=== PATIENT | female | born 1995 | race American Indian/Alaskan Native ===

== ENCOUNTER 2020-06-30 00:33 | Emergency (ER) | payer SELFPAY ==
[2020-06-30] MEDS ORDERED: HYDROcodone/ACETAMINOPHEN 5-325 MG TAB PO ONE (01:51)
[2020-06-30] MEDS ORDERED: ONDANSETRON 4 MG ODT TAB PO ONE (01:51)
[2020-06-30] MEDS ORDERED: IBUPROFEN 600 MG TAB PO ONE (01:51)
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
[2020-06-30 03:11] VITALS: BP 128/84
== END 2020-06-30 03:29 | disposition home or self-care (01) ==
LOC: ED 00:33
DX: S53.401A Unspecified sprain of right elbow, initial encounter (principal); S00.83XA Contusion of other part of head, initial encounter; S00.03XA Contusion of scalp, initial encounter; S10.93XA Contusion of unspecified part of neck, initial encounter; M62.838 Other muscle spasm; F17.200 Nicotine dependence, unspecified, uncomplicated; Z91.013 Allergy to seafood; Z98.890 Other specified postprocedural states; Z79.899 Other long term (current) drug therapy; V49.49XA Driver injured in collision with other motor vehicles in traffic accident, initial encounter; Y92.410 Unspecified street and highway as the place of occurrence of the external cause; Y93.89 Activity, other specified; Y99.8 Other external cause status
CPT/HCPCS: 70450; 70486; 72125; Q0162